=== PATIENT | male | born 1960 | race Caucasian/White ===

== ENCOUNTER 2023-07-05 04:56 | Outpatient (CLI) | payer MEDICAID, SELFPAY ==
[2023-07-05 08:16] LABS: Abs Immature Grans 0.03 10^3/uL (0.0-0.06); Absolute Basophil Count 0.05 10^3/uL (0.0-0.2); Absolute Eosinophil Count 0.34 10^3/uL (0.0-0.7); Absolute Monocyte Count 0.73 10^3/uL (0.1-0.8); Absolute Neutrophil Count 5.16 10^3/uL (1.2-6.7); Basophils % 0.6 %; Eosinophils % 3.9 %; HCT 42.5 % (40.0-50.0); HGB 14.5 g/dL (13.5-17.5); Immature Grans % 0.3 %; Lymphocytes % 28.4 %; MCH 31.3 pg (27.0-33.0); MCHC 34.1 % (32.0-36.0); MCV 92 fL (80-95); MPV 8.8 fL (8.0-11.0); Monocytes % 8.3 %; Neutrophils % 58.5 %; Platelet Count 271 10^3/uL (130-400); RBC 4.63 10^6/uL (4.36-5.78); RDW 12.5 % (11.8-14.1); RDW-SD 41.9 fL; WBC 8.81 10^3/uL (4.4-10.8)
[2023-07-05 08:31] LABS: ALT 59 U/L (16-63); AST 24 U/L (15-37); Albumin 4.2 g/dL (3.4-5.0); Alkaline Phosphatase 66 U/L (46-116); Anion Gap 7.7 mmol/L (3-11); BUN 15 mg/dL (7-18); Bilirubin, Total 0.3 mg/dL (0.2-1.0); CO2 31.3 mmol/L (21.0-32.0); Calcium 9.6 mg/dL (8.5-10.1); Chloride 106 mmol/L (98-107); Glucose 88 mg/dL (74-106); Magnesium 1.8 mg/dL (1.8-2.4); Potassium 3.7 mmol/L (3.5-5.1); Sodium 145 mmol/L (136-145); Total Protein 7.8 g/dL (6.4-8.2)
== END 2023-07-05 04:57 | disposition home or self-care (01) ==
LOC: LBO 04:56
PROVIDERS: PCP Nurse Practitioner Family; Visit Provider Internal Medicine Medical Oncology
DX: C34.92 Malignant neoplasm of unspecified part of left bronchus or lung (principal); I87.1 Compression of vein
CPT/HCPCS: 36415; 80053; 83735; 85025

== ENCOUNTER 2023-07-12 05:24 | Outpatient (CLI) | payer MEDICAID, SELFPAY ==
[2023-07-12 07:44] LABS: Abs Immature Grans 0.07 10^3/uL (0.0-0.06); Absolute Basophil Count 0.06 10^3/uL (0.0-0.2); Absolute Eosinophil Count 0.23 10^3/uL (0.0-0.7); Absolute Monocyte Count 0.72 10^3/uL (0.1-0.8); Absolute Neutrophil Count 7.17 10^3/uL (1.2-6.7); Basophils % 0.6 %; Eosinophils % 2.4 %; Immature Grans % 0.7 %; Lymphocytes % 14.5 %; MCH 31.3 pg (27.0-33.0); MCHC 34.1 % (32.0-36.0); MCV 92 fL (80-95); Monocytes % 7.5 %; Neutrophils % 74.3 %; Platelet Count 301 10^3/uL (130-400); RBC 4.47 10^6/uL (4.36-5.78); RDW 12.1 % (11.8-14.1); RDW-SD 40.5 fL; WBC 9.65 10^3/uL (4.4-10.8)
[2023-07-12 07:56] LABS: ALT 42 U/L (16-63); AST 17 U/L (15-37); Albumin 4.1 g/dL (3.4-5.0); Alkaline Phosphatase 68 U/L (46-116); Anion Gap 7.5 mmol/L (3-11); BUN 14 mg/dL (7-18); Bilirubin, Total 0.6 mg/dL (0.2-1.0); CO2 31.5 mmol/L (21.0-32.0); CREATININE 1.1 mg/dL (0.70-1.30); Calcium 9.7 mg/dL (8.5-10.1); Chloride 100 mmol/L (98-107); Glucose 105 mg/dL (74-106); Magnesium 1.9 mg/dL (1.8-2.4); Potassium 3.7 mmol/L (3.5-5.1); Sodium 139 mmol/L (136-145); Total Protein 8.4 g/dL (6.4-8.2)
== END 2023-07-12 05:25 | disposition home or self-care (01) ==
LOC: LBO 05:24
PROVIDERS: PCP Nurse Practitioner Family; Visit Provider Internal Medicine Medical Oncology
DX: I87.1 Compression of vein (principal); C34.92 Malignant neoplasm of unspecified part of left bronchus or lung
CPT/HCPCS: 36415; 80053; 83735; 85025

== ENCOUNTER 2023-07-20 01:34 | Outpatient (CLI) | payer MEDICAID, SELFPAY ==
[2023-07-20 10:27] LABS: Abs Immature Grans 0.02 10^3/uL (0.0-0.06); Absolute Basophil Count 0.04 10^3/uL (0.0-0.2); Absolute Eosinophil Count 0.09 10^3/uL (0.0-0.7); Absolute Lymphocyte Count 0.56 10^3/uL (1.2-3.4); Absolute Monocyte Count 0.66 10^3/uL (0.1-0.8); Basophils % 0.7 %; Eosinophils % 1.7 %; HCT 33.9 % (40.0-50.0); HGB 11.8 g/dL (13.5-17.5); Immature Grans % 0.4 %; Lymphocytes % 10.4 %; MCH 31.1 pg (27.0-33.0); MCHC 34.8 % (32.0-36.0); MCV 89 fL (80-95); MPV 8.6 fL (8.0-11.0); Monocytes % 12.3 %; Neutrophils % 74.5 %; Platelet Count 325 10^3/uL (130-400); RBC 3.79 10^6/uL (4.36-5.78); RDW 12.5 % (11.8-14.1); RDW-SD 39.8 fL; WBC 5.37 10^3/uL (4.4-10.8)
[2023-07-20 11:11] LABS: ALT 29 U/L (16-63); AST 13 U/L (15-37); Albumin 3.7 g/dL (3.4-5.0); Alkaline Phosphatase 58 U/L (46-116); Anion Gap 7.1 mmol/L (3-11); BUN 16 mg/dL (7-18); Bilirubin, Total 0.4 mg/dL (0.2-1.0); CO2 29.9 mmol/L (21.0-32.0); Calcium 9.3 mg/dL (8.5-10.1); Chloride 103 mmol/L (98-107); Glucose 79 mg/dL (74-106); Magnesium 1.9 mg/dL (1.8-2.4); Potassium 4.2 mmol/L (3.5-5.1); Sodium 140 mmol/L (136-145)
== END 2023-07-20 01:35 | disposition home or self-care (01) ==
LOC: LBO 01:35
PROVIDERS: PCP Nurse Practitioner Family; Visit Provider Internal Medicine Medical Oncology
DX: I87.1 Compression of vein (principal); C34.92 Malignant neoplasm of unspecified part of left bronchus or lung
CPT/HCPCS: 36415; 80053; 83735; 85025

== ENCOUNTER 2023-07-26 04:53 | Outpatient (CLI) | payer MEDICAID, SELFPAY ==
[2023-07-26 08:09] LABS: Abs Immature Grans 0.05 10^3/uL (0.0-0.06); Absolute Basophil Count 0.04 10^3/uL (0.0-0.2); Absolute Eosinophil Count 0.11 10^3/uL (0.0-0.7); Absolute Lymphocyte Count 0.65 10^3/uL (1.2-3.4); Absolute Monocyte Count 0.37 10^3/uL (0.1-0.8); Absolute Neutrophil Count 4.06 10^3/uL (1.2-6.7); Basophils % 0.8 %; Eosinophils % 2.1 %; HCT 38.1 % (40.0-50.0); Immature Grans % 0.9 %; Lymphocytes % 12.3 %; MCH 30.8 pg (27.0-33.0); MCHC 34.1 % (32.0-36.0); MCV 90 fL (80-95); MPV 8.1 fL (8.0-11.0); Neutrophils % 76.9 %; Platelet Count 305 10^3/uL (130-400); RBC 4.22 10^6/uL (4.36-5.78); RDW 12.4 % (11.8-14.1); RDW-SD 39.7 fL; WBC 5.28 10^3/uL (4.4-10.8)
[2023-07-26 08:26] LABS: ALT 27 U/L (16-63); AST 12 U/L (15-37); Albumin 3.8 g/dL (3.4-5.0); Alkaline Phosphatase 66 U/L (46-116); BUN 17 mg/dL (7-18); Bilirubin, Total 0.4 mg/dL (0.2-1.0); CREATININE 1.1 mg/dL (0.70-1.30); Calcium 9.9 mg/dL (8.5-10.1); Chloride 103 mmol/L (98-107); Glucose 117 mg/dL (74-106); Magnesium 1.9 mg/dL (1.8-2.4); Potassium 4.4 mmol/L (3.5-5.1); Sodium 142 mmol/L (136-145); Total Protein 8.3 g/dL (6.4-8.2)
== END 2023-07-26 04:54 | disposition home or self-care (01) ==
LOC: LBO 04:53
PROVIDERS: PCP Nurse Practitioner Family; Visit Provider Internal Medicine Medical Oncology
DX: I87.1 Compression of vein (principal); C34.92 Malignant neoplasm of unspecified part of left bronchus or lung
CPT/HCPCS: 36415; 80053; 83735; 85025

== ENCOUNTER 2023-08-02 06:02 | Outpatient (CLI) | payer MEDICAID, SELFPAY ==
[2023-08-02 08:50] LABS: Abs Immature Grans 0.05 10^3/uL (0.0-0.06); Absolute Basophil Count 0.05 10^3/uL (0.0-0.2); Absolute Eosinophil Count 0.14 10^3/uL (0.0-0.7); Absolute Lymphocyte Count 0.46 10^3/uL (1.2-3.4); Absolute Monocyte Count 0.38 10^3/uL (0.1-0.8); Absolute Neutrophil Count 4.62 10^3/uL (1.2-6.7); Basophils % 0.9 %; Eosinophils % 2.5 %; Immature Grans % 0.9 %; Lymphocytes % 8.1 %; MCH 30.7 pg (27.0-33.0); MCHC 34.2 % (32.0-36.0); MCV 90 fL (80-95); MPV 8.4 fL (8.0-11.0); Monocytes % 6.7 %; Neutrophils % 80.9 %; Platelet Count 209 10^3/uL (130-400); RBC 4.23 10^6/uL (4.36-5.78); RDW 12.9 % (11.8-14.1); RDW-SD 40.4 fL
[2023-08-02 09:05] LABS: ALT 34 U/L (16-63); AST 16 U/L (15-37); Albumin 3.9 g/dL (3.4-5.0); Alkaline Phosphatase 65 U/L (46-116); BUN 11 mg/dL (7-18); Bilirubin, Total 0.4 mg/dL (0.2-1.0); Calcium 9.5 mg/dL (8.5-10.1); Chloride 103 mmol/L (98-107); Glucose 114 mg/dL (74-106); Magnesium 1.8 mg/dL (1.8-2.4); Potassium 4.3 mmol/L (3.5-5.1); Sodium 140 mmol/L (136-145); Total Protein 8.3 g/dL (6.4-8.2)
== END 2023-08-02 06:03 | disposition home or self-care (01) ==
LOC: LBO 06:02
PROVIDERS: PCP Nurse Practitioner Family; Visit Provider Internal Medicine Medical Oncology
DX: I87.1 Compression of vein (principal); C34.92 Malignant neoplasm of unspecified part of left bronchus or lung
CPT/HCPCS: 36415; 80053; 83735; 85025

== ENCOUNTER 2023-08-09 05:55 | Outpatient (CLI) | payer MEDICAID, SELFPAY ==
[2023-08-09 08:45] LABS: Abs Immature Grans 0.03 10^3/uL (0.0-0.06); Absolute Basophil Count 0.04 10^3/uL (0.0-0.2); Absolute Eosinophil Count 0.17 10^3/uL (0.0-0.7); Absolute Lymphocyte Count 0.45 10^3/uL (1.2-3.4); Absolute Monocyte Count 0.31 10^3/uL (0.1-0.8); Absolute Neutrophil Count 2.62 10^3/uL (1.2-6.7); Basophils % 1.1 %; Eosinophils % 4.7 %; HCT 35.3 % (40.0-50.0); HGB 12.2 g/dL (13.5-17.5); Immature Grans % 0.8 %; Lymphocytes % 12.4 %; MCH 31.4 pg (27.0-33.0); MCHC 34.6 % (32.0-36.0); MCV 91 fL (80-95); MPV 8.6 fL (8.0-11.0); Monocytes % 8.6 %; Neutrophils % 72.4 %; Platelet Count 179 10^3/uL (130-400); RBC 3.89 10^6/uL (4.36-5.78); RDW 13.6 % (11.8-14.1); RDW-SD 42.2 fL; WBC 3.62 10^3/uL (4.4-10.8)
[2023-08-09 09:05] LABS: ALT 57 U/L (16-63); AST 22 U/L (15-37); Albumin 3.7 g/dL (3.4-5.0); Alkaline Phosphatase 62 U/L (46-116); Anion Gap 6.9 mmol/L (3-11); BUN 12 mg/dL (7-18); Bilirubin, Total 0.3 mg/dL (0.2-1.0); CO2 30.1 mmol/L (21.0-32.0); Calcium 9.3 mg/dL (8.5-10.1); Chloride 105 mmol/L (98-107); Glucose 106 mg/dL (74-106); Magnesium 1.7 mg/dL (1.8-2.4); Potassium 4.5 mmol/L (3.5-5.1); Sodium 142 mmol/L (136-145); Total Protein 7.7 g/dL (6.4-8.2)
== END 2023-08-09 05:56 | disposition home or self-care (01) ==
LOC: LBO 05:55
PROVIDERS: PCP Nurse Practitioner Family; Visit Provider Internal Medicine Medical Oncology
DX: I87.1 Compression of vein (principal); C34.92 Malignant neoplasm of unspecified part of left bronchus or lung
CPT/HCPCS: 36415; 80053; 83735; 85025

== ENCOUNTER 2023-08-10 15:40 | Emergency (ER) | payer MEDICAID, SELFPAY ==
[2023-08-10 15:44] VITALS: BP 161/79; PULSE 69; RESP 12; TEMP 36.4; O2SAT 100
--- NOTE | 2023-08-10 16:00 | DI.CT_ITS ---
Exam(s) CT CHEST PE CTA EXAM: CT CHEST PE CTA CLINICAL HISTORY: Right side chest pain, hx of R lung CA, radiation. TECHNIQUE: Imaging Protocol: Axial CT angiography was performed with multi-slice acquisition and mu lti-planar reconstructions as well as axial, coronal and sagittal MIP reconstructions. CONTRAST MATERIAL: Intravenous: Omnipaque 350 Contrast volume:80 mL COMPARISON: No exams were available for comparison FINDINGS: Pulmonary Arteries: No evidence of filling defect to suggest pulmonary emboli. Tracheobronchial tree: No mucous plugging. Mediastinum and Diandra: confluent adenopathy seen in the right paratracheal, precarinal and subcarinal regions. Pulmonary parenchyma: Mass right upper lobe adjacent to the superior right hilum. Pleura: No effusion or pneumothorax. Heart: The heart is not dilated. No coronary artery calcifications are seen. Aorta: Thoracic aorta non-dilated. No dissection. Mild atherosclerotic changes. Upper abdomen: No acute findings. Gallstone. Bones: Prominent flowing enthesophytes consistent with DISH no fractures. No lytic or blastic lesions are identified. Tubes, Catheters, and Lines: None Soft tissues: Unremarkable. IMPRESSION: No evidence of pulmonary embolism. Right upper lobe pulmonary mass. Mediastinal and right superior hilar adenopathy. Findings called to Wanda Landry, ER provider. RADIATION DOSE DELIVERED: 530.49mGy.cm Total DLP DATA REPOSITORY: All CT scans at this facility are submitted to the National Radiology Data Registry (NRDR) Dose Index Registry (DIR) with the [employer] ([employer]). RADIATION OPTIMIZATION: All CT scans at this facility use at least one of these dose optimization te chniques: automated exposure control; mA and/or kV adjustment per patient size (includes targeted exa ms where dose is matched to clinical indication); or iterative reconstruction.
--- NOTE | 2023-08-10 16:00 | RT.EKG_ITS ---
APPROVED REPORT Exam: Resting ECG Reason for Exam: Right side chest pain, resolved Patient Location: E HR:69 bpm ECG Measurements Heart Rate 69 AXIS ND 191 P 61 QRSd 89 QRS 58 QT 375 T 33 QTc 401 Conclusion Sinus rhythm...normal P axis, V-rate 60- 99 Ventricular premature complex...V complex w/ short R-R interval Narrow complex normal sinus rhythm at a rate of 69. Normal axis. Intervals within normal limits. N o significant ST segment abnormalities. Biphasic T waves left lateral chest wall leads. Significant left lateral chest wall artifact. No prior for comparison. No acute injury pattern.
--- NOTE | 2023-08-10 16:17 | ED.GENADUL_ITS ---
Discharge Plan Disposition Patient Disposition: Home Condition: Stable Discharge Details Clinical Impression: Transaminitis, Radiation adverse effect, Chest pain Primary Care Provider: Luma Spain ED Provider: Wanda Landry Home Meds and New Rx's Prescriptions: Continued cetirizine 10 mg tablet 10 mg PO DAILY Patient Comments: Take 1 tablet by mouth once daily lidocaine HCl 2 % solution 30 ml PO .COMPLEX Patient Comments: MIX 1 TO 1 TO 1 WITH DIPHENHYDRAMINE LIQUID, AND MAALOX AND TAKE NEEDED FOR SWALLOWING PAIN UP TO 5 TIMES A DAY Rx Instructions: 30 mL orally 5/day; omeprazole 40 mg capsule,delayed release(DR/EC) 40 mg PO DAILY Patient Comments: TAKE ONE CAPSULE BY MOUTH ONE-HALF HOUR PRIOR TO BREAKFAST enoxaparin 80 mg/0.8 mL syringe 80 mg subcut BID Patient Comments: INJECT 0.8ML SUBCUTANEOUSLY TWICE DAILY FOR 120 DAYS amlodipine 5 mg tablet 5 mg PO DAILY Patient Comments: TAKE 1 TABLET BY MOUTH ONCE DAILY lisinopril 40 mg tablet 40 mg PO DAILY Patient Comments: TAKE 1 TABLET BY MOUTH ONCE DAILY sucralfate 1 gram tablet 1 g PO TID Patient Comments: DISSOLVE ONE TABLET IN ONE TO TWO TEASPOONS OF WATER AND TAKE AFTER MEALS TO HELP WITH SWALLOWING PAIN nicotine (polacrilex) 4 mg mini lozenge 4 mg buccal .COMPLEX Patient Comments: DISSOLVE 1 LOZENGE BY MOUTH NEEDED FOR SMOKING CESSATION - USE NEEDED FOR CRAVING UP TO 16 TIMES PER DAY Rx Instructions: 4 mg buccally 16/day; prochlorperazine maleate 10 mg tablet 10 mg PO Q6H Patient Comments: TAKE 1 TABLET BY MOUTH EVERY 6 HOURS NEEDED FOR NAUSEA nicotine 21 mg/24 hr patch 24 hour 1 patch transdermal DAILY Patient Comments: APPLY 1 PATCH TOPICALLY ONCE DAILY atenolol 50 mg tablet 50 mg PO DAILY Patient Comments: TAKE 1 TABLET BY MOUTH ONCE DAILY ascorbic acid (vitamin C) [C-1000] 1,000 mg tablet 1 g PO BID aspirin 81 mg tablet,delayed release (DR/EC) 81 mg PO DAILY acetaminophen [Tylenol] 325 mg capsule 650 mg PO Q6H PRN cholecalciferol (vitamin D3) [D3-2000] 50 mcg (2,000 unit) capsule 50 mcg PO DAILY melatonin 10 mg tablet,chewable 10 mg PO QHS PRN Metamucil 3.4 gram/5.4 gram powder 1 tbsp PO DAILY Rx Instructions: mix into at least 8 oz of water or juice before administering Discharge Instructions Instructions: Transaminase Tests, Radiation therapy, Chest Pain, Adult ED Additional Instructions: At this time there is no evidence of a heart attack or blood clot in your lung. You do have some elevation of your liver enzyme tests. Please discuss this with your primary care team. Follow up with primary care provider/primary care CA team in 3-5 days. Return to ED sooner if any worsening pain, fever, vomiting diarrhea, dizziness or concerns. Referrals: [facility] [Outside] (Formerly [facility]) Luma Spain [Primary Care Provider] - Return if symptoms worsen HPI General Mode of arrival: ambulatory . Date/Time Provider Initiated Documentation: 08/10/23 15:51 . Limitations to Documentation: no limitations . Information obtained by: patient, RN notes reviewed and old records reviewed . HPI Narrative: 63-year-old male presents to the ER with chief complaint of right-sided chest pain while having radiation treatment prior to arrival. He reports around 2 PM he had severe burning and pain in his chest which he has not experienced with his previous radiation treatments. He did take some Tylenol and presented to the cancer center. He did have vital signs taken and was referred here for further treatment and evaluation. Upon initial presentation his chest pain is completely resolved, he is speaking in full sentences, denies any shortness of breath he does report mild cough with some phlegm. Denies any swelling in his lower extremities. He does have a past medical history of PEs, CVA and multiple core morbidities. He is on Lovenox injections daily. Does take 81 mg of aspirin daily, history of hypertension. Related Data Home Medications Medication Instructions Recorded Confirmed acetaminophen 325 mg capsule 650 mg PO Q6H PRN 08/10/23 08/10/23 (Tylenol) amlodipine 5 mg tablet 5 mg PO DAILY 08/10/23 08/10/23 ascorbic acid (vitamin C) 1,000 mg 1 g PO BID 08/10/23 08/10/23 tablet (C-1000) aspirin 81 mg tablet,delayed 81 mg PO DAILY 08/10/23 08/10/23 release atenolol 50 mg tablet 50 mg PO DAILY 08/10/23 08/10/23 cetirizine 10 mg tablet 10 mg PO DAILY 08/10/23 08/10/23 cholecalciferol (vitamin D3) 50 50 mcg PO DAILY 08/10/23 08/10/23 mcg (2,000 unit) capsule (D3-2000) enoxaparin 80 mg/0.8 mL 80 mg subcut BID 08/10/23 08/10/23 subcutaneous syringe lidocaine HCl 2 % mucosal solution 30 ml PO .COMPLEX 08/10/23 08/10/23 lisinopril 40 mg tablet 40 mg PO DAILY 08/10/23 08/10/23 melatonin 10 mg chewable tablet 10 mg PO QHS PRN 08/10/23 08/10/23 nicotine (polacrilex) 4 mg buccal 4 mg buccal .COMPLEX 08/10/23 08/10/23 mini lozenge nicotine 21 mg/24 hr daily 1 patch transdermal DAILY 08/10/23 08/10/23 transdermal patch omeprazole 40 mg capsule,delayed 40 mg PO DAILY 08/10/23 08/10/23 release prochlorperazine maleate 10 mg 10 mg PO Q6H 08/10/23 08/10/23 tablet psyllium husk 3.4 gram/5.4 gram 1 tbsp PO DAILY 08/10/23 08/10/23 oral powder (Metamucil) sucralfate 1 gram tablet 1 g PO TID 08/10/23 08/10/23 Allergies Allergy/AdvReac Type Severity Reaction Status Date / Time No Known Allergies Allergy Unverified 08/10/23 15:51 General Stated Complaint: Chest/Rib SANTI: 3 Review of Systems All systems reviewed & are unremarkable except as noted in HPI and below Constitutional Constitutional: Denies headache(s) and Denies weakness Eyes Eyes: Denies loss of vision ENT Ears, Nose, Mouth, and Throat: Denies dizziness and Denies headache(s) Cardiovascular Cardiovascular: Reports chest pain, Denies syncope, Denies pedal edema, Denies edema, Denies leg edema and Denies dyspnea Respiratory Respiratory: Reports cough and Denies dyspnea Gastrointestinal Gastrointestinal: Denies abdominal pain, Denies diarrhea, Denies nausea and Den ies vomiting Integumentary/Breasts Skin/Breast: Reports system reviewed and no additional complaints, except as documented, Reports erythema (Questionable, trace), Reports skin pain (Prior to arrival after radiation treatment none currently) and Reports other (Bruising noted from Lovenox injections to his abdomen, ) Neurologic Neurologic: Denies abnormal speech, Denies confusion, Denies dizziness, Denies syncope, Denies headache(s), Denies localized weakness, Denies loss of vision, Denies other visual disturbances, Denies convulsions and Denies weakness Psychiatric Psychiatric: Denies confusion Exam Narrative Exam Narrative: Constitutional: Alert and oriented x3. Appears stated age. Normal body habitus. Head: Normocephalic, no trauma. Eyes: Pupils PERRL, Red reflex noted, EOM's intact. Eyelids symmetrical without lesions, discharge, or swelling. Chest: RRR, Normal S1, S2, distal pulses intact. Resp: Lungs clear to auscultation bilaterally, no wheezes, rales, or rhonchi. Abdomen: Soft, non-distended, Normoactive bowel sounds all 4 quads. Musculoskeletal: Normal gait, Moves all 4 extremities without difficulty. Skin: Does have 2 small radiation tattoos noted to his mid sternum, bruising noted to his abdomen, no significant redness swelling, slight warmth noted no lesions. Capillary refill less than 2 sec. Neurologic: Cranial nerves II-XII intact. Alert and oriented x 3. Motor: No deficits noted. Sensory: Intact bilaterally all 4 extremities. Hematologic/Lymphatic: No ecchymosis, no lymphadenopathy. Course Vital Signs Vital signs: Vital Signs Temperature 36.4 C 08/10/23 15:44 Pulse 69 08/10/23 15:44 Respiratory Rate 12 08/10/23 15:44 Blood Pressure 161/79 H 08/10/23 15:44 Pulse Oximetry 100 08/10/23 15:44 Temperature 36.4 C 08/10/23 15:44 Temperature Source Temporal Artery Scan 08/10/23 15:44 Pulse 69 08/10/23 15:44 Respiratory Rate 12 08/10/23 15:44 Blood Pressure 161/79 H 08/10/23 15:44 Blood Pressure Position Sitting 08/10/23 15:44 Pulse Oximetry 100 08/10/23 15:44 Oxygen Delivery Method Room Air 08/10/23 15:44 Oxygen Flow Rate 0 08/10/23 15:44 Pain Level 5 08/10/23 15:44 Medical Decision Making 63-year-old male presents to the ER with chief complaint of right-sided chest pain while having radiation treatment prior to arrival. He reports around 2 PM he had severe burning and pain in his chest which he has not experienced with his previous radiation treatments. He did take some Tylenol and presented to the cancer center. He did have vital signs taken and was referred here for further treatment and evaluation. Upon initial presentation his chest pain is completely resolved, he is speaking in full sentences, denies any shortness of breath he does report mild cough with some phlegm. Denies any swelling in his lower extremities. He does have a past medical history of PEs, CVA and multiple core morbidities. He is on Lovenox injections daily. Does take 81 mg of aspirin daily, history of hypertension. Cardiac workup ordered including EKG, serial troponins, chest CT to rule out PE. EKG was reviewed by Dr. Adolfo Biggs ER attending, no old EKG available for review, no significant ST elevation or STEMI. Differential diagnosis includes but not limited to CT, radiation reaction, CAD, PE, costochondritis, liver injury, cholecystitis however no elevated bilirubin no nausea vomiting, biliary colic. Received from radiologist no evidence of PE, does have a right upper lobe mass no old studies to compare to, there is confluent adenopathy seen in the right paratracheal pericarinal and subcarinal regions, no aortic dissection, please see official report. On lab review initial troponin within normal limits, no leukocytosis, hemoglobin 12 hematocrit 34.6 which is at patient's baseline, PT PTT INR within normal limits, glucose 137 of note AST is 40 and ALT is 88 which is increased since yesterday's labs. Bilirubin within normal limits alk phos 59, BNP 162 which is within normal limits. Lymphadenopathy and pain can be related to the radiation therapy, will encourage patient follow-up with his cancer team within the next few days. On patient reevaluation no further chest pain noted. Serial troponin canceled due to no continued symptoms. I did discuss the labs and the results with him he verbalized understanding. Discussed strict return instructions and follow-up care. He does have continued radiation treatments tomorrow I did instruct him to follow-up with his primary care team and to return to the ER for any worsening. This text was generated using [email or web address] system, please disregard any oddities of phrase or misspellings. Lab Data Lab results reviewed: Yes I reviewed the patient's lab results. Labs: Laboratory Tests Range/Units 08/10/23 16:25 WBC (4.4-10.8) 10^3/uL 4.57 RBC (4.36-5.78) 10^6/uL 3.84 L Hgb (13.5-17.5) g/dL 12.0 L Hct (40.0-50.0) % 34.6 L MCV (80-95) fL 90 MCH (27.0-33.0) pg 31.3 MCHC (32.0-36.0) % 34.7 RDW (11.8-14.1) % 13.9 Plt Count (130-400) 10^3/uL 168 MPV (8.0-11.0) fL 8.8 Immature Gran % % 0.4 Neutrophils % % 90.3 Lymphocytes % % 3.9 Monocytes % % 4.8 Eosinophils % % 0.4 Basophils % % 0.2 Nucleated RBC % (0.0-0.3) % 0.0 Absolute Neutrophils (1.2-6.7) 10^3/uL 4.12 Absolute Lymphocytes (1.2-3.4) 10^3/uL 0.18 L Absolute Monocytes (0.1-0.8) 10^3/uL 0.22 Absolute Eosinophils (0.0-0.7) 10^3/uL 0.02 Absolute Basophils (0.0-0.2) 10^3/uL 0.01 PT (9.1-11.1) sec 9.8 INR (0.9-1.1) 1.0 APTT (23.6-32.8) sec 26.3 Sodium (136-145) mmol/L 139 Potassium (3.5-5.1) mmol/L 3.9 Chloride (98-107) mmol/L 102 Carbon Dioxide (21.0-32.0) mmol/L 28.2 Anion Gap (3-11) mmol/L 8.8 BUN (7-18) mg/dL 11 Creatinine (0.70-1.30) mg/dL 1.0 Est GFR (CKD-EPI 2020) (mL/min/1.73m2) 85.10 Glucose (74-106) mg/dL 137 H Calcium (8.5-10.1) mg/dL 9.4 Total Bilirubin (0.2-1.0) mg/dL 0.4 AST (15-37) U/L 40 H ALT (16-63) U/L 88 H Alkaline Phosphatase (46-116) U/L 59 Troponin I (< or =60) ng/L < 50 NT-Pro-B Natriuret Pep (<300) pg/mL 162 Total Protein (6.4-8.2) g/dL 8.2 Albumin (3.4-5.0) g/dL 4.1 Quality:[facility] Health Related Social Needs: No Data to Display PFSH All Active Problems (Updated 08/10/23 @ 17:20 by Wanda Landry NP) Chest pain (Acute) Radiation adverse effect (Acute) Transaminitis (Acute) Social History Smoking/Tobacco Use Status: Never Smoking risk assessment performed?: Yes Alcohol Intake: current Alcohol Intake frequency: holidays/special occasions only Substance use type: does not use
[2023-08-10 16:36] LABS: Abs Immature Grans 0.02 10^3/uL (0.0-0.06); Absolute Basophil Count 0.01 10^3/uL (0.0-0.2); Absolute Eosinophil Count 0.02 10^3/uL (0.0-0.7); Absolute Lymphocyte Count 0.18 10^3/uL (1.2-3.4); Absolute Monocyte Count 0.22 10^3/uL (0.1-0.8); Absolute Neutrophil Count 4.12 10^3/uL (1.2-6.7); Basophils % 0.2 %; Eosinophils % 0.4 %; HCT 34.6 % (40.0-50.0); Immature Grans % 0.4 %; Lymphocytes % 3.9 %; MCH 31.3 pg (27.0-33.0); MCHC 34.7 % (32.0-36.0); MCV 90 fL (80-95); MPV 8.8 fL (8.0-11.0); Monocytes % 4.8 %; Neutrophils % 90.3 %; Platelet Count 168 10^3/uL (130-400); RBC 3.84 10^6/uL (4.36-5.78); RDW 13.9 % (11.8-14.1); RDW-SD 42.5 fL; WBC 4.57 10^3/uL (4.4-10.8)
[2023-08-10] MEDS: Normal Saline - Diluent 50 ML VIAL IJ (16:39)
[2023-08-10] MEDS: Omnipaque 350 MG/ML 100 ML BTL 80 ML IJ (16:40)
[2023-08-10 16:50] LABS: PTT Activated 26.3 sec (23.6-32.8); Prothrombin Time 9.8 sec (9.1-11.1)
[2023-08-10 17:00] LABS: ALT 88 U/L (16-63); AST 40 U/L (15-37); Albumin 4.1 g/dL (3.4-5.0); Alkaline Phosphatase 59 U/L (46-116); Anion Gap 8.8 mmol/L (3-11); BUN 11 mg/dL (7-18); Bilirubin, Total 0.4 mg/dL (0.2-1.0); CO2 28.2 mmol/L (21.0-32.0); Calcium 9.4 mg/dL (8.5-10.1); Chloride 102 mmol/L (98-107); Glucose 137 mg/dL (74-106); NT-proBNP 162 pg/mL (<300); Potassium 3.9 mmol/L (3.5-5.1); Sodium 139 mmol/L (136-145); Total Protein 8.2 g/dL (6.4-8.2); Troponin I < 50 ng/L (< or =60)
[2023-08-10 17:06] VITALS: BP 122/78; PULSE 75; RESP 18; TEMP 36.1; O2SAT 99
== END 2023-08-10 17:51 | disposition home or self-care (01) ==
LOC: ER 17:53
PROVIDERS: Emergency Provider Registered Nurse Emergency; PCP Nurse Practitioner Family
DX: T66.XXXA Radiation sickness, unspecified, initial encounter (principal); R07.9 Chest pain, unspecified; R74.01 Elevation of levels of liver transaminase levels; C34.90 Malignant neoplasm of unspecified part of unspecified bronchus or lung; Z92.21 Personal history of antineoplastic chemotherapy; Z92.3 Personal history of irradiation; Z79.82 Long term (current) use of aspirin
CPT/HCPCS: 71275; 80053; 93005; 99285; 83880; 84484; 85025; 85610; 85730; 93010; 99284; J3490

== ENCOUNTER 2023-08-23 04:28 | Outpatient (CLI) | payer MEDICAID, SELFPAY ==
[2023-08-23 12:48] LABS: Abs Immature Grans 0.01 10^3/uL (0.0-0.06); Absolute Basophil Count 0.02 10^3/uL (0.0-0.2); Absolute Eosinophil Count 0.09 10^3/uL (0.0-0.7); Absolute Monocyte Count 0.36 10^3/uL (0.1-0.8); Absolute Neutrophil Count 2.49 10^3/uL (1.2-6.7); Basophils % 0.6 %; Eosinophils % 2.7 %; HCT 31.3 % (40.0-50.0); Immature Grans % 0.3 %; Lymphocytes % 11.9 %; MCHC 35.1 % (32.0-36.0); MCV 91 fL (80-95); Monocytes % 10.7 %; Neutrophils % 73.8 %; Platelet Count 191 10^3/uL (130-400); RBC 3.44 10^6/uL (4.36-5.78); RDW 15.9 % (11.8-14.1); RDW-SD 50.4 fL; WBC 3.37 10^3/uL (4.4-10.8)
[2023-08-23 13:11] LABS: ALT 35 U/L (16-63); AST 17 U/L (15-37); Albumin 3.9 g/dL (3.4-5.0); Alkaline Phosphatase 62 U/L (46-116); Anion Gap 8.9 mmol/L (3-11); BUN 15 mg/dL (7-18); Bilirubin, Total 0.38 mg/dL (0.2-1.0); CO2 28.1 mmol/L (21.0-32.0); CREATININE 1.2 mg/dL (0.70-1.30); Calcium 9.3 mg/dL (8.5-10.1); Chloride 102 mmol/L (98-107); Estimated GFR 68.38 (mL/min/1.73m2); Glucose 125 mg/dL (74-106); Magnesium 1.5 mg/dL (1.8-2.4); Potassium 3.9 mmol/L (3.5-5.1); Sodium 139 mmol/L (136-145); TSH 1.13 uIU/Ml (0.36-3.74); Total Protein 7.7 g/dL (6.4-8.2)
[2023-08-25 12:49] LABS: HCV RNA Qualitative Undetected (Undetected)
== END 2023-08-23 04:29 | disposition home or self-care (01) ==
LOC: LBO 04:28
PROVIDERS: PCP Nurse Practitioner Family; Visit Provider Internal Medicine Medical Oncology
DX: Z86.19 Personal history of other infectious and parasitic diseases (principal); Z79.899 Other long term (current) drug therapy; I87.1 Compression of vein; C34.92 Malignant neoplasm of unspecified part of left bronchus or lung
CPT/HCPCS: 36415; 80053; 87522; 83735; 84439; 84443; 85025

== ENCOUNTER 2023-09-20 02:28 | Outpatient (CLI) | payer MEDICAID, SELFPAY ==
[2023-09-20 11:53] LABS: Abs Immature Grans 0.02 10^3/uL (0.0-0.06); Absolute Basophil Count 0.03 10^3/uL (0.0-0.2); Absolute Eosinophil Count 0.35 10^3/uL (0.0-0.7); Absolute Lymphocyte Count 0.55 10^3/uL (1.2-3.4); Absolute Monocyte Count 0.57 10^3/uL (0.1-0.8); Absolute Neutrophil Count 3.04 10^3/uL (1.2-6.7); Basophils % 0.7 %; Eosinophils % 7.7 %; HCT 38.5 % (40.0-50.0); HGB 13.3 g/dL (13.5-17.5); Immature Grans % 0.4 %; Lymphocytes % 12.1 %; MCH 32.1 pg (27.0-33.0); MCHC 34.5 % (32.0-36.0); MCV 93 fL (80-95); MPV 8.2 fL (8.0-11.0); Monocytes % 12.5 %; Neutrophils % 66.6 %; Platelet Count 277 10^3/uL (130-400); RBC 4.14 10^6/uL (4.36-5.78); RDW 15.2 % (11.8-14.1); RDW-SD 52.1 fL; WBC 4.56 10^3/uL (4.4-10.8)
[2023-09-20 12:08] LABS: ALT 28 U/L (16-63); AST 19 U/L (15-37); Albumin 4.2 g/dL (3.4-5.0); Alkaline Phosphatase 79 U/L (46-116); Anion Gap 10.5 mmol/L (3-11); BUN 13 mg/dL (7-18); Bilirubin, Total 0.45 mg/dL (0.2-1.0); CO2 28.5 mmol/L (21.0-32.0); CREATININE 1.2 mg/dL (0.70-1.30); Calcium 9.8 mg/dL (8.5-10.1); Chloride 106 mmol/L (98-107); Estimated GFR 68.38 (mL/min/1.73m2); Glucose 101 mg/dL (74-106); Magnesium 1.7 mg/dL (1.8-2.4); Potassium 4.2 mmol/L (3.5-5.1); Sodium 145 mmol/L (136-145); Total Protein 8.4 g/dL (6.4-8.2)
[2023-09-20 12:19] LABS: FREE T4 0.92 ng/dL (0.76-1.46); TSH 1.32 uIU/Ml (0.36-3.74)
[2023-09-22 12:49] LABS: HCV RNA Qualitative Undetected (Undetected)
== END 2023-09-20 02:29 | disposition home or self-care (01) ==
LOC: LBO 02:29
PROVIDERS: Nurse Practitioner Family; PCP Nurse Practitioner Family; Visit Provider Internal Medicine Medical Oncology
DX: I87.1 Compression of vein (principal); C34.92 Malignant neoplasm of unspecified part of left bronchus or lung; Z79.899 Other long term (current) drug therapy; Z86.19 Personal history of other infectious and parasitic diseases
CPT/HCPCS: 36415; 80053; 87522; 83735; 84439; 84443; 85025

== ENCOUNTER 2023-10-18 03:13 | Outpatient (CLI) | payer MEDICAID, SELFPAY ==
[2023-10-18 12:02] LABS: Abs Immature Grans 0.02 10^3/uL (0.0-0.06); Absolute Basophil Count 0.04 10^3/uL (0.0-0.2); Absolute Eosinophil Count 0.39 10^3/uL (0.0-0.7); Absolute Lymphocyte Count 0.71 10^3/uL (1.2-3.4); Absolute Monocyte Count 0.66 10^3/uL (0.1-0.8); Absolute Neutrophil Count 5.82 10^3/uL (1.2-6.7); Basophils % 0.5 %; Eosinophils % 5.1 %; HCT 41.8 % (40.0-50.0); HGB 14.4 g/dL (13.5-17.5); Immature Grans % 0.3 %; Lymphocytes % 9.3 %; MCHC 34.4 % (32.0-36.0); MCV 96 fL (80-95); MPV 8.4 fL (8.0-11.0); Monocytes % 8.6 %; Neutrophils % 76.2 %; Platelet Count 277 10^3/uL (130-400); RBC 4.36 10^6/uL (4.36-5.78); RDW 12.7 % (11.8-14.1); RDW-SD 44.9 fL; WBC 7.64 10^3/uL (4.4-10.8)
[2023-10-18 12:19] LABS: ALT 20 U/L (16-63); AST 19 U/L (15-37); Albumin 4.1 g/dL (3.4-5.0); Alkaline Phosphatase 77 U/L (46-116); Anion Gap 5.7 mmol/L (3-11); BUN 11 mg/dL (7-18); CO2 30.3 mmol/L (21.0-32.0); CREATININE 1.1 mg/dL (0.70-1.30); Calcium 9.5 mg/dL (8.5-10.1); Chloride 104 mmol/L (98-107); Glucose 93 mg/dL (74-106); Magnesium 1.7 mg/dL (1.8-2.4); Potassium 4.3 mmol/L (3.5-5.1); Sodium 140 mmol/L (136-145); TSH 1.19 uIU/Ml (0.36-3.74); Total Protein 7.9 g/dL (6.4-8.2)
[2023-10-20 12:57] LABS: HCV RNA Qualitative Undetected (Undetected)
== END 2023-10-18 03:14 | disposition home or self-care (01) ==
LOC: LBO 03:14
PROVIDERS: PCP Nurse Practitioner Family; Visit Provider Internal Medicine Medical Oncology
DX: I87.1 Compression of vein (principal); C34.92 Malignant neoplasm of unspecified part of left bronchus or lung; Z86.19 Personal history of other infectious and parasitic diseases; Z79.899 Other long term (current) drug therapy
CPT/HCPCS: 36415; 80053; 87522; 83735; 84439; 84443; 85025

== ENCOUNTER 2023-11-15 13:12 | Outpatient (CLI) | payer MEDICAID, SELFPAY ==
[2023-11-15 12:51] LABS: Abs Immature Grans 0.02 10^3/uL (0.0-0.06); Absolute Basophil Count 0.04 10^3/uL (0.0-0.2); Absolute Eosinophil Count 0.33 10^3/uL (0.0-0.7); Absolute Lymphocyte Count 0.77 10^3/uL (1.2-3.4); Absolute Monocyte Count 0.53 10^3/uL (0.1-0.8); Absolute Neutrophil Count 4.86 10^3/uL (1.2-6.7); Basophils % 0.6 %; HCT 45.7 % (40.0-50.0); HGB 15.7 g/dL (13.5-17.5); Immature Grans % 0.3 %; Lymphocytes % 11.8 %; MCHC 34.4 % (32.0-36.0); MCV 93 fL (80-95); MPV 8.4 fL (8.0-11.0); Monocytes % 8.1 %; Neutrophils % 74.2 %; Platelet Count 255 10^3/uL (130-400); RDW-SD 41.4 fL; WBC 6.55 10^3/uL (4.4-10.8)
[2023-11-15 13:23] LABS: ALT 30 U/L (16-63); AST 21 U/L (15-37); Albumin 4.2 g/dL (3.4-5.0); Alkaline Phosphatase 84 U/L (46-116); Anion Gap 6.9 mmol/L (3-11); BUN 13 mg/dL (7-18); Bilirubin, Total 0.33 mg/dL (0.2-1.0); CO2 30.1 mmol/L (21.0-32.0); CREATININE 1.1 mg/dL (0.70-1.30); Chloride 104 mmol/L (98-107); FREE T4 0.88 ng/dL (0.76-1.46); Glucose 96 mg/dL (74-106); Magnesium 1.9 mg/dL (1.8-2.4); Potassium 4.6 mmol/L (3.5-5.1); Sodium 141 mmol/L (136-145); TSH 1.36 uIU/Ml (0.36-3.74); Total Protein 8.2 g/dL (6.4-8.2)
== END 2023-11-15 13:13 | disposition home or self-care (01) ==
LOC: LBO 13:13
PROVIDERS: PCP Nurse Practitioner Family; Visit Provider Internal Medicine Medical Oncology
DX: I87.1 Compression of vein (principal); C34.92 Malignant neoplasm of unspecified part of left bronchus or lung; Z79.899 Other long term (current) drug therapy
CPT/HCPCS: 36415; 80053; 83735; 84439; 84443; 85025

== ENCOUNTER 2023-12-13 02:12 | Outpatient (CLI) | payer MEDICAID, SELFPAY ==
[2023-12-13 12:06] LABS: Abs Immature Grans 0.03 10^3/uL (0.0-0.06); Absolute Basophil Count 0.04 10^3/uL (0.0-0.2); Absolute Eosinophil Count 0.29 10^3/uL (0.0-0.7); Absolute Lymphocyte Count 0.78 10^3/uL (1.2-3.4); Absolute Neutrophil Count 6.98 10^3/uL (1.2-6.7); Basophils % 0.5 %; Eosinophils % 3.3 %; HCT 44.4 % (40.0-50.0); HGB 15.4 g/dL (13.5-17.5); Immature Grans % 0.3 %; Lymphocytes % 8.8 %; MCH 31.8 pg (27.0-33.0); MCHC 34.7 % (32.0-36.0); MCV 92 fL (80-95); MPV 8.3 fL (8.0-11.0); Monocytes % 7.9 %; Neutrophils % 79.2 %; Platelet Count 256 10^3/uL (130-400); RBC 4.85 10^6/uL (4.36-5.78); RDW 12.3 % (11.8-14.1); RDW-SD 41.1 fL; WBC 8.82 10^3/uL (4.4-10.8)
[2023-12-13 12:33] LABS: ALT 17 U/L (16-63); AST 20 U/L (15-37); Albumin 3.9 g/dL (3.4-5.0); Alkaline Phosphatase 87 U/L (46-116); Anion Gap 3.8 mmol/L (3-11); BUN 14 mg/dL (7-18); CO2 33.2 mmol/L (21.0-32.0); CREATININE 1.2 mg/dL (0.70-1.30); Chloride 107 mmol/L (98-107); Estimated GFR 68.38 (mL/min/1.73m2); FREE T4 0.82 ng/dL (0.76-1.46); Glucose 90 mg/dL (74-106); Magnesium 1.7 mg/dL (1.8-2.4); Potassium 4.4 mmol/L (3.5-5.1); Sodium 144 mmol/L (136-145); TSH 1.84 uIU/mL (0.36-3.74)
== END 2023-12-13 02:13 | disposition home or self-care (01) ==
LOC: LBO 02:12
PROVIDERS: PCP Nurse Practitioner Family; Visit Provider Internal Medicine Medical Oncology
DX: C34.92 Malignant neoplasm of unspecified part of left bronchus or lung (principal); I87.1 Compression of vein; Z79.899 Other long term (current) drug therapy
CPT/HCPCS: 36415; 80053; 83735; 84439; 84443; 85025

== ENCOUNTER 2024-01-10 02:54 | Outpatient (CLI) | payer MEDICAID, SELFPAY ==
[2024-01-10 12:13] LABS: Abs Immature Grans 0.02 10^3/uL (0.0-0.06); Absolute Basophil Count 0.03 10^3/uL (0.0-0.2); Absolute Eosinophil Count 0.24 10^3/uL (0.0-0.7); Absolute Lymphocyte Count 0.73 10^3/uL (1.2-3.4); Absolute Monocyte Count 0.34 10^3/uL (0.1-0.8); Absolute Neutrophil Count 4.69 10^3/uL (1.2-6.7); Basophils % 0.5 %; HCT 41.9 % (40.0-50.0); HGB 14.7 g/dL (13.5-17.5); Immature Grans % 0.3 %; Lymphocytes % 12.1 %; MCH 31.6 pg (27.0-33.0); MCHC 35.1 % (32.0-36.0); MCV 90 fL (80-95); MPV 8.4 fL (8.0-11.0); Monocytes % 5.6 %; Neutrophils % 77.5 %; Platelet Count 238 10^3/uL (130-400); RBC 4.65 10^6/uL (4.36-5.78); RDW 12.6 % (11.8-14.1); RDW-SD 41.1 fL; WBC 6.05 10^3/uL (4.4-10.8)
[2024-01-10 12:40] LABS: ALT 27 U/L (16-63); AST 20 U/L (15-37); Albumin 4.1 g/dL (3.4-5.0); Alkaline Phosphatase 82 U/L (46-116); Anion Gap 6.2 mmol/L (3-11); BUN 14 mg/dL (7-18); Bilirubin, Total 0.35 mg/dL (0.2-1.0); CO2 30.8 mmol/L (21.0-32.0); CREATININE 1.3 mg/dL (0.70-1.30); Calcium 9.2 mg/dL (8.5-10.1); Chloride 106 mmol/L (98-107); Estimated GFR 62.11 (mL/min/1.73m2); FREE T4 0.87 ng/dL (0.76-1.46); Glucose 143 mg/dL (74-106); Magnesium 1.8 mg/dL (1.8-2.4); Potassium 3.9 mmol/L (3.5-5.1); Sodium 143 mmol/L (136-145); TSH 1.17 uIU/mL (0.36-3.74); Total Protein 7.8 g/dL (6.4-8.2)
== END 2024-01-10 02:55 | disposition home or self-care (01) ==
PROVIDERS: Internal Medicine Medical Oncology; PCP Nurse Practitioner Family; Visit Provider Nurse Practitioner Family
DX: I87.1 Compression of vein (principal); C34.92 Malignant neoplasm of unspecified part of left bronchus or lung
CPT/HCPCS: 36415; 80053; 83735; 84439; 84443; 85025

== ENCOUNTER 2024-02-07 01:38 | Outpatient (RCR) | payer MEDICAID, SELFPAY ==
[2024-02-07] MEDS: Normal Saline Flush 10 ML SYR IVP (12:19)
[2024-02-07 12:42] LABS: Abs Immature Grans 0.03 10^3/uL (0.0-0.06); Absolute Basophil Count 0.04 10^3/uL (0.0-0.2); Absolute Eosinophil Count 0.21 10^3/uL (0.0-0.7); Absolute Lymphocyte Count 0.98 10^3/uL (1.2-3.4); Absolute Monocyte Count 0.46 10^3/uL (0.1-0.8); Absolute Neutrophil Count 6.79 10^3/uL (1.2-6.7); Basophils % 0.5 %; Eosinophils % 2.5 %; HCT 41.4 % (40.0-50.0); HGB 14.6 g/dL (13.5-17.5); Immature Grans % 0.4 %; Lymphocytes % 11.5 %; MCH 31.1 pg (27.0-33.0); MCHC 35.3 % (32.0-36.0); MCV 88 fL (80-95); Monocytes % 5.4 %; Neutrophils % 79.7 %; Platelet Count 291 10^3/uL (130-400); RBC 4.69 10^6/uL (4.36-5.78); RDW 12.7 % (11.8-14.1); WBC 8.51 10^3/uL (4.4-10.8)
[2024-02-07 13:07] LABS: FREE T4 0.74 ng/dL (0.76-1.46); TSH 1.39 uIU/mL (0.36-3.74)
[2024-02-07 13:25] LABS: ALT 28 U/L (16-63); AST 19 U/L (15-37); Albumin 3.9 g/dL (3.4-5.0); Alkaline Phosphatase 85 U/L (46-116); Anion Gap 10.9 mmol/L (3-11); BUN 14 mg/dL (7-18); Bilirubin, Total 0.23 mg/dL (0.2-1.0); CO2 28.1 mmol/L (21.0-32.0); CREATININE 1.2 mg/dL (0.70-1.30); Calcium 8.8 mg/dL (8.5-10.1); Chloride 105 mmol/L (98-107); Estimated GFR 68.38 (mL/min/1.73m2); Glucose 169 mg/dL (74-106); Magnesium 1.8 mg/dL (1.8-2.4); Potassium 3.8 mmol/L (3.5-5.1); Sodium 144 mmol/L (136-145)
== END 2024-02-22 23:59 | disposition home or self-care (01) ==
LOC: INF 01:38
PROVIDERS: Nurse Practitioner Family; PCP Nurse Practitioner Family; Visit Provider Internal Medicine Medical Oncology
DX: C34.92 Malignant neoplasm of unspecified part of left bronchus or lung (principal); I87.1 Compression of vein; Z79.899 Other long term (current) drug therapy; Z45.2 Encounter for adjustment and management of vascular access device
CPT/HCPCS: 36591; 80053; 83735; 84439; 84443; 85025

== ENCOUNTER 2024-03-06 08:58 | Outpatient (RCR) | payer MEDICAID, SELFPAY ==
[2024-03-06 09:24] LABS: Abs Immature Grans 0.04 10^3/uL (0.0-0.06); Absolute Basophil Count 0.05 10^3/uL (0.0-0.2); Absolute Eosinophil Count 0.32 10^3/uL (0.0-0.7); Absolute Lymphocyte Count 1.05 10^3/uL (1.2-3.4); Absolute Monocyte Count 0.88 10^3/uL (0.1-0.8); Absolute Neutrophil Count 6.73 10^3/uL (1.2-6.7); Basophils % 0.6 %; Eosinophils % 3.5 %; HCT 42.4 % (40.0-50.0); HGB 14.9 g/dL (13.5-17.5); Immature Grans % 0.4 %; Lymphocytes % 11.6 %; MCH 31.6 pg (27.0-33.0); MCHC 35.1 % (32.0-36.0); MCV 90 fL (80-95); Monocytes % 9.7 %; Neutrophils % 74.2 %; Platelet Count 307 10^3/uL (130-400); RBC 4.72 10^6/uL (4.36-5.78); RDW 12.8 % (11.8-14.1); WBC 9.07 10^3/uL (4.4-10.8)
[2024-03-06] MEDS: Normal Saline Flush 10 ML SYR IVP (09:28)
[2024-03-06 09:44] LABS: ALT 39 U/L (16-63); AST 21 U/L (15-37); Albumin 3.9 g/dL (3.4-5.0); Alkaline Phosphatase 79 U/L (46-116); Anion Gap 6.2 mmol/L (3-11); BUN 16 mg/dL (7-18); Bilirubin, Total 0.23 mg/dL (0.2-1.0); CO2 31.8 mmol/L (21.0-32.0); CREATININE 1.1 mg/dL (0.70-1.30); Calcium 9.8 mg/dL (8.5-10.1); Chloride 106 mmol/L (98-107); Glucose 95 mg/dL (74-106); Sodium 144 mmol/L (136-145); Total Protein 7.9 g/dL (6.4-8.2)
[2024-03-06 09:54] LABS: FREE T4 0.73 ng/dL (0.76-1.46); TSH 2.15 uIU/mL (0.36-3.74)
== END 2024-03-24 23:59 | disposition home or self-care (01) ==
LOC: INF 08:58
PROVIDERS: Nurse Practitioner Family; PCP Nurse Practitioner Family; Visit Provider Internal Medicine Medical Oncology
DX: I87.1 Compression of vein (principal); C34.92 Malignant neoplasm of unspecified part of left bronchus or lung; Z79.899 Other long term (current) drug therapy
CPT/HCPCS: 36591; 80053; 83735; 84439; 84443; 85025

== ENCOUNTER 2024-04-04 03:13 | Outpatient (RCR) | payer MEDICAID, SELFPAY ==
[2024-04-04 12:30] LABS: Abs Immature Grans 0.02 10^3/uL (0.0-0.06); Absolute Basophil Count 0.04 10^3/uL (0.0-0.2); Absolute Eosinophil Count 0.28 10^3/uL (0.0-0.7); Absolute Lymphocyte Count 0.99 10^3/uL (1.2-3.4); Absolute Monocyte Count 0.64 10^3/uL (0.1-0.8); Absolute Neutrophil Count 5.43 10^3/uL (1.2-6.7); Basophils % 0.5 %; Eosinophils % 3.8 %; HGB 15.1 g/dL (13.5-17.5); Immature Grans % 0.3 %; Lymphocytes % 13.4 %; MCH 31.2 pg (27.0-33.0); MCHC 34.3 % (32.0-36.0); MCV 91 fL (80-95); MPV 8.8 fL (8.0-11.0); Monocytes % 8.6 %; Neutrophils % 73.4 %; Platelet Count 287 10^3/uL (130-400); RBC 4.84 10^6/uL (4.36-5.78); RDW 12.4 % (11.8-14.1); RDW-SD 40.9 fL
[2024-04-04] MEDS: Normal Saline Flush 10 ML SYR IVP (12:35)
[2024-04-04 12:46] LABS: ALT 40 U/L (16-63); AST 20 U/L (15-37); Alkaline Phosphatase 83 U/L (46-116); Anion Gap 2.6 mmol/L (3-11); BUN 14 mg/dL (7-18); Bilirubin, Total 0.28 mg/dL (0.2-1.0); CO2 32.4 mmol/L (21.0-32.0); CREATININE 1.1 mg/dL (0.70-1.30); Calcium 9.8 mg/dL (8.5-10.1); Chloride 106 mmol/L (98-107); Glucose 107 mg/dL (74-106); Magnesium 1.7 mg/dL (1.8-2.4); Potassium 4.1 mmol/L (3.5-5.1); Sodium 141 mmol/L (136-145); Total Protein 7.9 g/dL (6.4-8.2)
[2024-04-04 12:56] LABS: FREE T4 0.77 ng/dL (0.76-1.46); TSH 1.91 uIU/mL (0.36-3.74)
== END 2024-04-21 23:59 | disposition home or self-care (01) ==
LOC: INF 03:13
PROVIDERS: Nurse Practitioner Family; PCP Nurse Practitioner Family; Visit Provider Internal Medicine Medical Oncology
DX: I87.1 Compression of vein (principal); C34.92 Malignant neoplasm of unspecified part of left bronchus or lung; Z79.899 Other long term (current) drug therapy
CPT/HCPCS: 36591; 80053; 83735; 84439; 84443; 85025

== ENCOUNTER 2024-05-02 02:43 | Outpatient (RCR) | payer MEDICAID, SELFPAY ==
[2024-05-02 09:46] LABS: Abs Immature Grans 0.04 10^3/uL (0.0-0.06); Absolute Basophil Count 0.03 10^3/uL (0.0-0.2); Absolute Lymphocyte Count 0.94 10^3/uL (1.2-3.4); Absolute Monocyte Count 0.59 10^3/uL (0.1-0.8); Absolute Neutrophil Count 5.75 10^3/uL (1.2-6.7); Basophils % 0.4 %; Eosinophils % 3.9 %; HCT 41.9 % (40.0-50.0); HGB 14.7 g/dL (13.5-17.5); Immature Grans % 0.5 %; Lymphocytes % 12.3 %; MCH 31.6 pg (27.0-33.0); MCHC 35.1 % (32.0-36.0); MCV 90 fL (80-95); Monocytes % 7.7 %; Neutrophils % 75.2 %; Platelet Count 278 10^3/uL (130-400); RBC 4.65 10^6/uL (4.36-5.78); RDW 12.2 % (11.8-14.1); RDW-SD 39.9 fL; WBC 7.65 10^3/uL (4.4-10.8)
[2024-05-02 10:10] LABS: ALT 40 U/L (16-63); AST 21 U/L (15-37); Albumin 3.7 g/dL (3.4-5.0); Alkaline Phosphatase 76 U/L (46-116); Anion Gap 7.1 mmol/L (3-11); BUN 17 mg/dL (7-18); Bilirubin, Total 0.3 mg/dL (0.2-1.0); CO2 31.9 mmol/L (21.0-32.0); CREATININE 1.1 mg/dL (0.70-1.30); Calcium 9.5 mg/dL (8.5-10.1); Chloride 107 mmol/L (98-107); Glucose 98 mg/dL (74-106); Magnesium 1.9 mg/dL; Potassium 3.8 mmol/L (3.5-5.1); Sodium 146 mmol/L (136-145); TSH 1.79 uIU/mL (0.36-3.74); Total Protein 7.8 g/dL (6.4-8.2)
[2024-05-02] MEDS: Normal Saline Flush 10 ML SYR IVP (11:49)
[2024-05-02 18:32] LABS: T4, Free 1.1 ng/dL (0.8-2.2)
[2024-05-03 12:38] LABS: HCV RNA Qualitative Undetected (Undetected)
== END 2024-05-22 23:59 | disposition home or self-care (01) ==
LOC: INF 02:43
PROVIDERS: PCP Nurse Practitioner Family; Visit Provider Internal Medicine Medical Oncology
DX: I87.1 Compression of vein (principal); C34.92 Malignant neoplasm of unspecified part of left bronchus or lung; Z79.899 Other long term (current) drug therapy; Z86.19 Personal history of other infectious and parasitic diseases
CPT/HCPCS: 36591; 80053; 87522; 83735; 84439; 84443; 85025

== ENCOUNTER 2024-05-29 03:06 | Outpatient (RCR) | payer MEDICAID, SELFPAY ==
[2024-05-29] MEDS: Normal Saline Flush 10 ML SYR IVP (07:45)
[2024-05-29 07:53] LABS: Abs Immature Grans 0.05 10^3/uL (0.0-0.06); Absolute Basophil Count 0.04 10^3/uL (0.0-0.2); Absolute Eosinophil Count 0.33 10^3/uL (0.0-0.7); Absolute Lymphocyte Count 1.05 10^3/uL (1.2-3.4); Absolute Monocyte Count 0.71 10^3/uL (0.1-0.8); Basophils % 0.4 %; Eosinophils % 3.3 %; HCT 45.7 % (40.0-50.0); HGB 15.7 g/dL (13.5-17.5); Immature Grans % 0.5 %; Lymphocytes % 10.5 %; MCH 31.4 pg (27.0-33.0); MCHC 34.4 % (32.0-36.0); MCV 91 fL (80-95); MPV 8.8 fL (8.0-11.0); Monocytes % 7.1 %; Neutrophils % 78.2 %; Platelet Count 264 10^3/uL (130-400); RDW 12.5 % (11.8-14.1); RDW-SD 41.6 fL; WBC 9.98 10^3/uL (4.4-10.8)
[2024-05-29 08:13] LABS: ALT 32 U/L (16-63); AST 21 U/L (15-37); Alkaline Phosphatase 82 U/L (46-116); Anion Gap 5.6 mmol/L (3-11); BUN 9 mg/dL (7-18); Bilirubin, Total 0.4 mg/dL (0.2-1.0); CO2 31.4 mmol/L (21.0-32.0); CREATININE 1.2 mg/dL (0.70-1.30); Calcium 10.5 mg/dL (8.5-10.1); Chloride 106 mmol/L (98-107); Estimated GFR 68.38 (mL/min/1.73m2); Glucose 146 mg/dL (74-106); Magnesium 1.6 mg/dL; Potassium 3.9 mmol/L (3.5-5.1); Sodium 143 mmol/L (136-145)
[2024-05-29 08:23] LABS: FREE T4 0.83 ng/dL (0.76-1.46)
== END 2024-06-21 23:59 | disposition home or self-care (01) ==
LOC: INF 03:06
PROVIDERS: Nurse Practitioner Family; PCP Nurse Practitioner Family; Visit Provider Internal Medicine Medical Oncology
DX: C34.92 Malignant neoplasm of unspecified part of left bronchus or lung (principal); I87.1 Compression of vein; Z79.899 Other long term (current) drug therapy
CPT/HCPCS: 36591; 80053; 83735; 84439; 84443; 85025

== ENCOUNTER 2024-06-26 02:07 | Outpatient (RCR) | payer MEDICAID, SELFPAY ==
[2024-06-26 13:45] LABS: Abs Immature Grans 0.06 10^3/uL (0.0-0.06); Absolute Basophil Count 0.04 10^3/uL (0.0-0.2); Absolute Eosinophil Count 0.26 10^3/uL (0.0-0.7); Absolute Lymphocyte Count 1.08 10^3/uL (1.2-3.4); Absolute Monocyte Count 0.66 10^3/uL (0.1-0.8); Basophils % 0.4 %; Eosinophils % 2.6 %; HCT 43.4 % (40.0-50.0); HGB 14.9 g/dL (13.5-17.5); Immature Grans % 0.6 %; Lymphocytes % 10.9 %; MCH 31.4 pg (27.0-33.0); MCHC 34.3 % (32.0-36.0); MCV 92 fL (80-95); MPV 9.4 fL (8.0-11.0); Monocytes % 6.7 %; Neutrophils % 78.8 %; Platelet Count 292 10^3/uL (130-400); RBC 4.74 10^6/uL (4.36-5.78); RDW 12.5 % (11.8-14.1); RDW-SD 41.7 fL
[2024-06-26 14:13] LABS: ALT 34 U/L (16-63); AST 23 U/L (15-37); Alkaline Phosphatase 86 U/L (46-116); Anion Gap 8.3 mmol/L (3-11); BUN 14 mg/dL (7-18); Bilirubin, Total 0.3 mg/dL (0.2-1.0); CO2 28.7 mmol/L (21.0-32.0); CREATININE 1.1 mg/dL (0.70-1.30); Calcium 9.6 mg/dL (8.5-10.1); Chloride 105 mmol/L (98-107); Estimated GFR 75.43 (mL/min/1.73m2); FREE T4 0.77 ng/dL (0.76-1.46); Glucose 131 mg/dL (74-106); Magnesium 1.8 mg/dL (1.8-2.4); Potassium 3.8 mmol/L (3.5-5.1); Sodium 142 mmol/L (136-145); TSH 1.49 uIU/mL (0.36-3.74)
== END 2024-07-22 23:59 | disposition home or self-care (01) ==
LOC: INF 02:07
PROVIDERS: PCP Nurse Practitioner Family; Visit Provider Internal Medicine Medical Oncology
DX: Z79.899 Other long term (current) drug therapy (principal); C34.92 Malignant neoplasm of unspecified part of left bronchus or lung; Z45.2 Encounter for adjustment and management of vascular access device
CPT/HCPCS: 36591; 80053; 83735; 84439; 84443; 85025